=== PATIENT | male | born 1975 | race Caucasian/White ===

== ENCOUNTER 2020-03-30 02:55 | Emergency (ER) | payer MEDICAID ==
[~2020-03-30] VITALS: Ht 165.1 cm; Wt 68.0 kg
[2020-03-30 02:59] VITALS: BP 123/87
[2020-03-30 03:11] VITALS: BP 123/87
== END 2020-03-30 03:11 | disposition home or self-care (01) ==
LOC: MED 02:55
DX: M94.0 Chondrocostal junction syndrome [Tietze] (principal)
CPT/HCPCS: 99282